=== PATIENT | male | born 1955 | race Caucasian/White ===

== ENCOUNTER 2021-12-24 18:43 | Emergency (ER) | payer OTHER ==
[~2021-12-24] VITALS: Ht 172.7 cm; Wt 77.1 kg
[2021-12-24 19:32] VITALS: BP_SYST 202
--- NOTE | 2021-12-24 19:39 | NUR ---
Patient triaged and placed in waiting room. VS checked and patient appears in no acute distress at this time. Accompanied by self, awaiting available bed, and MD notified of need for MSE.
[2021-12-24] MEDS ORDERED: ACETAMINOPHEN 500 MG TABLET PO ONE (21:00)
[2021-12-24] MEDS ORDERED: amLODIPine BESYLATE 10 MG TABLET PO ONE (21:00)
[2021-12-24 21:41] LABS: ANION GAP 5 (5-15); CALCIUM 10.1 mg/dL (8.4-11.0); CHLORIDE 102 mmol/L (98-107); CREATININE 2.17 mg/dL (0.55-1.30); GLUCOSE 117 mg/dL (70-99); UREA NITROGEN, BLOOD 31 mg/dL (8-21)
[2021-12-24 21:45] LABS: BASOPHILS # (AUTO) 0.1 K/uL (0.0-0.2); EOSINOPHILS # (AUTO) 0.4 K/uL (0.0-0.4); EOSINOPHILS % (AUTO) 3.2 % (0.0-4.0); HEMOGLOBIN 17.6 g/dL (14.0-18.0); LYMPHOCYTES # (AUTO) 1.7 K/uL (1.0-5.5); LYMPHOCYTES % (AUTO) 12.7 % (20.5-51.5); MEAN CORPUSCULAR HEMOGLOBIN 29 pg (27-31); MEAN CORPUSCULAR HGB CONC 33 % (32-36); MEAN CORPUSCULAR VOLUME 87 fL (79.0-98.0); MONOCYTES # (AUTO) 0.9 K/uL (0.0-1.0); MONOCYTES % (AUTO) 6.8 % (1.7-9.3); NEUTROPHILS # (AUTO) 10.4 K/uL (1.8-7.7); NEUTROPHILS % (AUTO) 76.3 % (40.0-70.0); PLATELET COUNT (AUTO) 281 K/uL (130-430); RED BLOOD CELL COUNT(AUTO) 6.08 MIL/uL (4.2-6.2); RED CELL DISTRIBUTION WIDTH 15.5 % (9.0-15.0); WHITE BLOOD COUNT (AUTO) 13.7 K/uL (4.8-10.8)
[2021-12-24 21:46] LABS: GFR AFRICAN AMERICAN 39 mL/min (>90)
[2021-12-24 21:49] LABS: ALANINE AMINOTRANSFERASE 24 U/L (12-78); ALBUMIN 3.9 g/dL (3.4-4.8); ASPARTATE AMINOTRANSFERASE 19 U/L (10-37); TOTAL BILIRUBIN 0.5 mg/dL (0.0-1.0)
--- NOTE | 2021-12-24 22:26 | NUR ---
PT ARRIVED ED WITH HYPERTENSION. NO MED HX, NO MEDICATIONS TAKEN. pT HAS HEADACHE AND FEELS SOB
[2021-12-24] MEDS ORDERED: amLODIPine BESYLATE 10 MG TABLET ONE (23:04)
[2021-12-24] MEDS ORDERED: ACETAMINOPHEN 500 MG TABLET ONE (23:05)
[2021-12-25] MEDS ORDERED: cloNIDine HCL 0.1 MG TABLET PO ONE
[2021-12-25] MEDS ORDERED: NOR10 PO (01:10)
[2021-12-25 01:24] VITALS: BP_SYST 160
[2021-12-30] MEDS ORDERED: LISI1TAB55 PO (23:36)
== END 2021-12-25 01:24 | disposition home or self-care (01) ==
LOC: SED 18:43
DX: I10 Essential (primary) hypertension (principal); N28.9 Disorder of kidney and ureter, unspecified; R42 Dizziness and giddiness; R51.9 Headache, unspecified; R06.02 Shortness of breath; F12.90 Cannabis use, unspecified, uncomplicated; Z72.0 Tobacco use; Z79.899 Other long term (current) drug therapy
CPT/HCPCS: 36415; 70450-TC; 71045; 76376; 80053; 83880; 84484; 85025; 93005; 99285

== ENCOUNTER 2022-01-04 14:42 | Emergency (ER) | payer OTHER ==
[~2022-01-04] VITALS: Ht 172.7 cm; Wt 68.0 kg
[~2022-01-04 14:42] MED LIST: LISI1TAB55 PO; METO25TA3 PO; NOR10 PO
[2022-01-04 15:07] VITALS: BP_SYST 127
--- NOTE | 2022-01-04 15:17 | NUR ---
Patient triaged and placed in waiting room. VSS and patient appears in no acute distress at this time. Accompanied by DAUGHTER, awaiting available bed, and MD notified of need for MSE.
--- NOTE | 2022-01-04 17:00 | NUR ---
CALL FOR MD, NO ANSWER
--- NOTE | 2022-01-04 18:23 | NUR ---
CALL FOR MD, NO ANSWER
[2022-01-04 18:47] VITALS: BP_SYST 127
== END 2022-01-04 18:47 | disposition left against medical advice (07) ==
LOC: SED 14:42
DX: R07.9 Chest pain, unspecified (principal); R11.10 Vomiting, unspecified; R06.02 Shortness of breath; Z53.21 Procedure and treatment not carried out due to patient leaving prior to being seen by health care provider

== ENCOUNTER 2022-01-11 23:17 | Emergency (ER) | payer OTHER ==
[~2022-01-11] VITALS: Ht 172.7 cm; Wt 68.0 kg
[2022-01-11 23:27] VITALS: BP_SYST 154
--- NOTE | 2022-01-11 23:32 | NUR ---
Patient triaged and placed in waiting room. VSS and patient appears in no acute distress at this time. Accompanied by SELF, awaiting available bed, and MD notified of need for MSE.
--- NOTE | 2022-01-12 01:30 | NUR ---
Patient left without being seen. No further care provided. ER MD aware
== END 2022-01-12 01:30 | disposition left against medical advice (07) ==
LOC: SED 23:17
DX: M54.50 Low back pain, unspecified (principal); R11.0 Nausea; Z53.21 Procedure and treatment not carried out due to patient leaving prior to being seen by health care provider